=== PATIENT | female | born 1995 | race Caucasian/White ===

== ENCOUNTER 2020-01-18 16:36 | Emergency (ER) | payer MEDICAID ==
[~2020-01-18] VITALS: Ht 162.6 cm; Wt 64.4 kg
[2020-01-18 17:00] VITALS: BP_SYST 132
--- NOTE | 2020-01-18 17:05 | NUR ---
Patient arrived BLS ,c/o anxiety, crying, EKG done and given to Kelvin Garner,triaged and placed in waiting room since pt on stable condition , Kelvin Garner agreeable . VSS and patient appears in no acute distress at this time. Accompanied by self, awaiting available bed, and MD notified of need for MSE.will cont to monitor
[2020-01-18 17:33] LABS: BASOPHILS % (AUTO) 0.5 % (0.0-2.0); EOSINOPHILS % (AUTO) 0.2 % (0.0-4.0); HEMATOCRIT 47.6 % (36-48); HEMOGLOBIN 16.1 g/dL (12.0-16.0); LYMPHOCYTES % (AUTO) 23.2 % (20.5-51.5); MEAN CORPUSCULAR HEMOGLOBIN 34 pg (27-31); MEAN CORPUSCULAR HGB CONC 34 % (32-36); MEAN CORPUSCULAR VOLUME 99 fL (79.0-98.0); MONOCYTES # (AUTO) 0.6 K/uL (0.0-1.0); NEUTROPHILS % (AUTO) 69.1 % (40.0-70.0); PLATELET COUNT (AUTO) 203 K/uL (130-430); RED BLOOD CELL COUNT(AUTO) 4.83 MIL/uL (4.2-6.2); WHITE BLOOD COUNT (AUTO) 8.7 K/uL (4.8-10.8)
--- NOTE | 2020-01-18 18:03 | NUR ---
Pt speaking in the phone, no s/s of distress, pt not crying at this time.
[2020-01-18 18:15] LABS: ANION GAP 19 (5-15); CALCIUM 9.8 mg/dL (8.4-11.0); CHLORIDE 103 mmol/L (98-107); CREATININE 0.92 mg/dL (0.55-1.30); GFR AFRICAN AMERICAN 96 mL/min (>90); GLUCOSE 113 mg/dL (70-99); POTASSIUM 3.4 mmol/L (3.5-5.1); SODIUM SERUM 140 mmol/L (136-145); UREA NITROGEN, BLOOD 7 mg/dL (8-21)
[2020-01-18 18:16] LABS: ALANINE AMINOTRANSFERASE 42 U/L (12-78); ALBUMIN 4.8 g/dL (3.4-4.8); ASPARTATE AMINOTRANSFERASE 21 U/L (10-37); TOTAL BILIRUBIN 1.7 mg/dL (0.0-1.0)
--- NOTE | 2020-01-18 21:53 | NUR ---
Patient ambulatory to bed hallway
--- NOTE | 2020-01-18 21:57 | NUR ---
recieved report. pt in [facility] with side rails up. no distress noted.
--- NOTE | 2020-01-18 23:09 | NUR ---
PT RESTING IN [facility]. NO DISTRESS NOTED. NO SOB,NO C/O PAIN. VSS
[2020-01-18 23:27] LABS: BILIRUBIN,URINE NEGATIVE (NEGATIVE); CLARITY/URINE CLEAR (CLEAR); COLOR,URINE YELLOW (YELLOW); GLUCOSE,URINE NEGATIVE (NEGATIVE); KETONES,URINE 1+ (NEGATIVE); LEUKOCYTE ESTERASE ,URINE NEGATIVE (NEGATIVE); NITRITE, URINE NEGATIVE (NEGATIVE); PROTEIN URINE TRACE (NEGATIVE)
[2020-01-18] MEDS ORDERED: IBUPROFEN 600 MG TABLET PO ONE (23:30)
[2020-01-18] MEDS ORDERED: LORazepam 1 MG TABLET PO ONE (23:30)
[2020-01-18 23:31] LABS: BLOOD, URINE TRACE (NEGATIVE)
[2020-01-18 23:34] VITALS: BP_SYST 131
--- NOTE | 2020-01-18 23:37 | NUR ---
Patient given written and verbal discharge instructions and verbalizes understanding. ER MD BERNAL discussed with patient the results and treatment provided. Patient in stable condition. ID arm band removed. IV catheter removed intact and dressing applied, no active bleeding. Rx of DIAZEPAM AND IBUPROFEN given. Patient educated on pain management and to follow up with PMD. Pain Scale 2/10. Opportunity for questions provided and answered. Medication side effect fact sheet provided.
[2020-01-18 23:57] LABS: BACTERIA,URINE FEW /HPF (None Seen); WBC,URINE 0-3 /HPF (0-3)
[2020-01-19] LABS: BARBITURATE, URINE NEGATIVE (NEG <=200); BENZODIAZEPINE, URINE NEGATIVE (NEG <=150); CANNABINOID, URINE POSITIVE (NEG <=50); COCAINE, URINE NEGATIVE (NEG <=150); METHAMPHETAMINES SCREEN,URINE NEGATIVE (NEG <=500); OPIATE, URINE NEGATIVE (NEG <=100); PHENCYCLIDINE SCREEN,URINE NEGATIVE (NEG <=25); UR TRICYCLIC ANTIDEPRESSANTS NEGATIVE (NEG <=300); URINE AMPHETAMINE NEGATIVE (NEG <=500); URINE METHADONE NEGATIVE (NEG <=200); URINE OXYCODONE SCREEN NEGATIVE (NEG <=100); URINE PROPOXYPHENE SCREEN NEGATIVE (NEG <=300)
== END 2020-01-18 23:37 | disposition home or self-care (01) ==
LOC: SED 16:36
DX: R07.89 Other chest pain (principal); F41.9 Anxiety disorder, unspecified
CPT/HCPCS: 36415; 80053; 80307; 81000-TC; 84484; 85025; 93005; 99284